=== PATIENT | female | born 1990 | race Caucasian/White ===

== ENCOUNTER 2022-11-15 11:00 | Outpatient (REF) | payer OTHER, SELFPAY ==
--- NOTE | 2022-11-15 11:30 | PAPFT_PTH ---
PATIENT: Rebecca Evangelista LOC: [facility] U#:[id number] AGE/SX: 32/F ROOM: RE11/15/[address]: Honorio David DNP : 1990 BED: DIS: 11/15/2022 SPEC #: [id number] RECD: 11/16/22 13:01 STATUS: DELMI REEliana #: [id number] CHAR: 11/15/22 11:[address]: Honorio Dan DEPT: [facility] Cytology RECD BY: Arlen Plata Tissues: 1 - CX/ENDOCX FOR PAP SMEARS Procedures: PAP THIN PREP/[facility] Screening HPV DNA PROBE Comments: [id number]
== END 2022-11-15 11:01 | disposition home or self-care (01) ==
LOC: LBN 11:00
PROVIDERS: PCP Nurse Practitioner Family; Visit Provider Nurse Practitioner Family
DX: Z12.4 Encounter for screening for malignant neoplasm of cervix (principal); Z11.51 Encounter for screening for human papillomavirus (HPV)
CPT/HCPCS: 88142; 87624